=== PATIENT | male | born 1980 | race Hispanic/Latino ===

== ENCOUNTER 2024-08-12 13:01 | Emergency (ER) | payer OTHER ==
[~2024-08-12] VITALS: Ht 177.8 cm; Wt 73.6 kg
[2024-08-12] MEDS ORDERED: NOVOLOG100 UNIT/1 SC (13:27)
[2024-08-12] MEDS ORDERED: IBUPROFEN800 MG PO (13:27)
[2024-08-12] MEDS ORDERED: METFORMIN HCL500 M2 PO (13:27)
[2024-08-12] MEDS ORDERED: HYDROCODON-ACE1 EA12 (13:27)
[2024-08-12] MEDS ORDERED: NOVOLOG MI100 UNIT/1 SC (13:27)
[2024-08-12 14:45] VITALS: PULSE 100; RESP 18; TEMP 98.2; O2SAT 97
== END 2024-08-12 14:45 | disposition home or self-care (01) ==
LOC: FSED 13:05
DX: Z46.6 Encounter for fitting and adjustment of urinary device (principal); N48.89 Other specified disorders of penis; R39.89 Other symptoms and signs involving the genitourinary system; E11.9 Type 2 diabetes mellitus without complications
CPT/HCPCS: 74176; 99283